=== PATIENT | male | born 1975 ===

== ENCOUNTER 2020-11-24 13:57 | Emergency (ER) | payer MEDICAID, SELFPAY ==
[2020-11-24 13:53] VITALS: BP 137/89; PULSE 92; TEMP 36.3; O2SAT 95
--- NOTE | 2020-11-24 13:57 | ED.GENADUL_ITS ---
Discharge Plan Disposition Patient Disposition: HOME Condition: Improving Discharge Details Clinical Impression: Food bolus obstruction of intestine ED Provider: Franklin Cancino Home Meds and New Rx's Prescriptions: Continued multivitamin Tablet 1 tab PO DAILY RF: 0 bupropion HCl 100 mg Tablet Sustained-Release 12 Hr 100 mg PO DAILY RF: 0 pantoprazole 20 mg Tablet,Delayed Release (Dr/Ec) 20 mg PO DAILY RF: 0 ferrous sulfate 325 mg (65 mg iron) Capsule, Extended Release 325 mg PO Q OTHER DAY RF: 0 [id number] acid-B6-soy kapoor ext [id number]-zxs-[id number]-mg Tablet 1 tab PO DAILY RF: 0 Discharge Instructions Additional Instructions: Chest x-ray is unremarkable. I recommend you follow-up with your regular doctor at home for recheck. Continue pantoprazole as prescribed in addition to your other medications. Soft diet today. Return to the ER for any acute concerns. Medical Decision Making 45-year-old male states he was eating a breakfast burrito at a local restaurant when he had a choking episode. States that Heimlich maneuver was performed on scene, dislodging a piece of food. Patient had slight upper esophageal burning sensation that has now resolved and states he is without complaint. Patient is exam is reassuring. He is given water which she is able to drink without difficulty. He is referred for chest x-ray which is unremarkable for acute process. Patient is stable and improved, he is appropriate discharge to home. Will recommend consideration of outpatient endoscopy to be discussed upon recheck at PMD. HPI General Mode of arrival: EMS . Date/Time Provider Initiated Documentation: 11/24/20 14:19 . Limitations to Documentation: no limitations . Information obtained by: EMS . History of Present Illness 45 year old M presents to the emergency department with the chief complaint of Choking episode while eating, now improved, described as similar to prior episodes, Quality is described as dull, Patient reports no radiation. Patient started experiencing this minute(s) and it has been now resolved. No relieving factors improve symptom(s), No exacerbating factors reported . Patient notes cough; denies chest pain, shortness of breath and syncope. Patient did receive the following treatments prior to arrival, none and other (Received the Heimlich maneuver at restaurant) Related Data Home Medications Medication Instructions Recorded Confirmed [id number] acid-B6-soy kapoor ext 1 tab PO DAILY 11/24/20 11/24/20 bupropion HCl 100 mg PO DAILY 11/24/20 11/24/20 ferrous sulfate 325 mg PO Q OTHER DAY 11/24/20 11/24/20 multivitamin 1 tab PO DAILY 11/24/20 11/24/20 pantoprazole 20 mg PO DAILY 11/24/20 11/24/20 Allergies Allergy/AdvReac Type Severity Reaction Status Date / Time No Known Allergies Allergy Unverified 11/24/20 14:01 Review of Systems Narrative: No shortness of breath, no persistent cough, no abdominal pain. Recently well and immunized against COVID-19. [facility] Social History Smoking/Tobacco Use Status: Never Smoking risk assessment performed?: Yes Alcohol Intake: current Alcohol Intake frequency: holidays/special occasions only Alcohol type: wine Drug use: Never Substance use type: does not use Do you feel safe at home: Yes Do you feel safe in your relationship?: Yes Exam Narrative Exam Narrative: GEN: awake, alert, oriented 3. Pleasant, well groomed, interactive. HEAD: Normocephalic, atraumatic ENT: Mucous membranes moist, oropharynx unremarkable, External ear exam unremarkable EYES: PERRL, EOMI NECK: Full ROM, no JONI, no menigismus CHEST/RESP: Nontender, clear to auscultation bilateral, no wheeze/rhonchi/rales CARDIOVASCULAR: RRR, no murmur, rub benny. 2+ Rad pulse bilateral ABDOMEN: Soft, nontender, reducible ventral/umbilical hernia. +Bowel sounds EXT: Full ROM, no edema, no rash Neuro: Grossly normal neurologic exam, conversant, interactive. Psych: Speech fluent, thoughts congruent, affect normal
--- NOTE | 2020-11-24 14:24 | DI.RAD_ITS ---
Exam(s) XR CHEST 2V PA LATERAL EXAM: XR CHEST 2V PA LATERAL CLINICAL HISTORY: choking episode TECHNIQUE: 2D digital imaging was performed. COMPARISON: No exams were available for comparison FINDINGS: MEDIASTINUM: Normal. No pneumomediastinum. HEART: Normal. PULMONARY VASCULATURE: Normal. LUNGS: Clear. Symmetric inflation. PLEURAL SPACE: No pleural effusion or pneumothorax. BONE:Scoliosis thoracolumbar spine. No foreign body. No free air beneath the diaphragm. IMPRESSION: No acute abnormality. DATA REPOSITORY: RADIATION DOSE DELIVERED:
== END 2020-11-24 15:08 | disposition home or self-care (01) ==
PROVIDERS: Emergency Provider Emergency Medicine
DX: T18.120A Food in esophagus causing compression of trachea, initial encounter (principal); R05 Cough; R07.0 Pain in throat
CPT/HCPCS: 99283; 71046